=== PATIENT | male | born 1990 | race Asian ===

== ENCOUNTER 2016-05-20 20:16 | Emergency (ER) | payer OTHER ==
[2016-05-20 20:35] VITALS: O2SAT 97
[2016-05-20] MEDS ORDERED: ONDANSETRON DISINTEGRATING 4 MG TAB PO ONE (20:48)
[2016-05-20] MEDS ORDERED: NS 1,000 ML IV ONE (21:11)
--- NOTE | 2016-05-20 21:11 | EDPHY ---
H & P Stated Complaint: N/V x 3 days since 4 wisdom teeth pulled 05/17/16 Time Seen by Provider: 05/20/16 20:38 HPI/ROS: CHIEF COMPLAINT: nausea and vomiting HISTORY OF PRESENT ILLNESS: 26-year-old male presents emergency department complaining of nausea and vomiting for the past 3 days. Patient had all 4 wisdom teeth removed 4 days ago. He is taking amoxicillin 3 times a day, 600 mg of ibuprofen every 8 hours and 1 Vicodin every 4-6 hours. Patient reports he is taking this with very little food if any food because it hurts to eat. Patient denies abdominal pain, no fevers, no diarrhea. Patient denies difficulty swallowing, no chest pain or shortness of breath. REVIEW OF SYSTEMS: A comprehensive 10 point review of systems is otherwise negative aside from elements mentioned in the history of present illness. Source: Patient Exam Limitations: No limitations - Personal History Current Tetanus Diphtheria and Acellular Pertussis (TDAP): No - Medical/Surgical History Hx Asthma: No Hx Chronic Respiratory Disease: No Hx Diabetes: No Hx Cardiac Disease: No Hx Renal Disease: No Hx Cirrhosis: No Hx Alcoholism: No Hx HIV/AIDS: No Hx Splenectomy or Spleen Trauma: No Other PMH: denies - Social History Smoking Status: Never smoked - Physical Exam Exam: Physical Exam Gen: Alert and Oriented, NAD HEENT: PERRL, dry mucous membranes, no dental abscess, no trismus, no bleeding NECK: no meningismus CV: regular rate and regular rhythm PULM: CTAB, no wheezes ABDOMEN: soft, non tender to palpation, BS present BACK: No CVA tenderness NEURO: Neurologically grossly intact EXTREMITIES: normal appearing SKIN: no rash or break in skin on exposed skin PSYCH: answers questions appropriately. Constitutional: Initial Vital Signs Temperature (C) 37.0 C 05/20/16 20:29 Heart Rate 80 05/20/16 20:29 Respiratory Rate 16 05/20/16 20:29 Blood Pressure 126/98 H 05/20/16 20:29 O2 Sat (%) 97 05/20/16 20:29 O2 Delivery Mode Room Air Allergies/Adverse Reactions: No Known Allergies Allergy (Unverified 05/20/16 20:28) Home Medications: Medication Instructions Recorded Amoxicillin 05/20/16 Ibuprofen 05/20/16 Ondansetron Odt [Zofran Odt] 4 mg PO Q6-8PRN PRN #8 tab 05/20/16 Vicodin 5-300 mg Tablet 05/20/16 Medical Decision Making ED Course/Re-evaluation: IV established, i-STAT obtained, patient is given 4 mg of Zofran ODT. 2 L of normal saline is ordered. Chemistry panel is normal, normal electrolytes, normal renal function. I think the patient is likely vomiting due to taking his medications on an empty stomach. I have discussed the importance of eating with these medications. I will discharge him home with a prescription for Zofran to take 30 minutes before taking his medications. I also encouraged him to eat before taking these medicines. Patient agrees to return to the emergency department for worsening symptoms. Differential Diagnosis: Diagnosis considered but not limited to gastroenteritis, gastritis, medication side effect - Data Points Laboratory Results: 05/20/16 21:14 POC Hgb 15.0 gm/dL (14.5-17.3) POC Hct 44 % (42.8-50.6) POC Sodium 144 mEq/L (134-144) POC Potassium 4.1 mEq/L (3.3-5.0) POC Chloride 105 mEq/L (96-108) POC BUN 17 mg/dL (7-23) POC Creatinine 1.1 mg/dL (0.8-1.5) POC Glucose 98 mg/dL (70-100) Medications Given: Discontinued Medications Sodium Chloride (Ns) 1,000 mls @ 0 mls/hr IV ONCE ONE PRN Reason: Wide Open Stop: 05/20/16 21:12 Last Admin: 05/20/16 21:15 Dose: 1,000 mls Ondansetron HCl (Zofran Odt) 4 mg PO EDNOW ONE Stop: 05/20/16 20:49 Last Admin: 05/20/16 20:50 Dose: 4 mg Point of Care Test Results: 05/20/16 21:14 POC Sodium 144 POC Potassium 4.1 POC Chloride 105 POC BUN 17 POC Creatinine 1.1 POC Glucose 98 Departure - Departure Disposition: Home, Routine, Self-Care Clinical Impression: Nausea and vomiting Condition: Good Instructions: Acute Nausea and Vomiting (ED), Ondansetron (By mouth) Additional Instructions: Take 4 mg of Zofran 30 minutes before taking your medication. Eat 20 minutes before taking your medication. Return to the emergency department for fevers, worsening symptoms, abdominal pain, any other questions or concerns. Referrals: NONE *PRIMARY CARE P,. [Primary Care Provider] - As per Instructions Prescriptions: Ondansetron Odt [Zofran Odt] 4 mg PO Q6-8PRN PRN #8 tab PRN Reason: Nausea/Vomiting, Can'T Take Po
[2016-05-20] MEDS ORDERED: ONDANSETRON 4MG PREPACK#2 BTL TAKEHOME ONE (21:22)
[2016-05-20 22:05] VITALS: BP 125/72; PULSE 89; RESP 20; TEMP 98.8
== END 2016-05-20 22:04 | disposition home or self-care (01) ==
DX: R11.2 Nausea with vomiting, unspecified (principal)
CPT/HCPCS: 82947-QW